=== PATIENT | male | born 1995 | race Caucasian/White ===

== ENCOUNTER → 2016-12-13 | Outpatient (CLI) | payer OTHER ==
[~2016-12-13] MED LIST: ALLE60TA69 PO; AUGM500T34 PO; NORCOTAB PO; PRIN10TA PO
--- NOTE | 2016-12-13 13:33 | REP ---
Thyroid sonography: History: Nontoxic diffuse goiter. Comparison thyroid sonography January 12, 2013 and November 20, 2014. Findings: Thyroid isthmus is normal measuring 0.3 cm in thickness. The sonographic dimensions of the right lobe of the thyroid today are 5.7 x 2.1 x 1.6 cm. The left lobe measures 4.8 x 1.6 x 1.1 cm. There is a nodule along the posterior aspect of the right lobe of the gland measuring 2.2 x 0.9 x 0.7 cm. A similarly positioned nodule on the left posteriorly measures 1.1 x 0.4 x 0.4 cm. These findings are quite similar to the prior study. Impression: Bilateral stable nodules. Signed by Pedro Desai MD 12/13/2016 01:44 P
--- NOTE | 2016-12-14 03:16 | REP ---
Clinical: Hypertension. Technique: Real time pandey scale and color evaluation using curved array transducer. Findings: Bilateral kidneys are normal in contour, size, echogenicity, and reniform shape without hydronephrosis, nephrolithiasis, cystic or renal mass lesion. Right kidney measures 11.2 x 7.2 x 4.8 cm. Left kidney measures 11.6 x 5.0 x 5.3 cm. Bladder is unremarkable and currently measures 8.3 x 8.7 x 4.2 cm. Impression: Normal renal ultrasound. Signed by Palmer Lam MD 12/14/2016 03:07 A
== END ==
LOC: M RAD 09:49
PROVIDERS: ATTEND Nurse Practitioner Family
DX: I10 Essential (primary) hypertension (principal); E04.9 Nontoxic goiter, unspecified